=== PATIENT | female | born 1980 | race Caucasian/White ===

== ENCOUNTER → 2018-12-07 | Outpatient (CLI) | payer OTHER ==
[~2018-12-07] MED LIST: COLACE 100100 MG/CAP PO; FE-40325 MG PO; IRON INFUSION; MAXZIDE-25MG TA1 TAB PO; MOTRIN 800800 MG/TAB PO; NORCO 325 MG-51 TAB PO; PERCOCET 325 MG1 TA2 PO; PRENATAL1 TA1
== END ==
LOC: COL.RAD 14:12
DX: K62.5 Hemorrhage of anus and rectum (principal); K63.89 Other specified diseases of intestine; M43.06 Spondylolysis, lumbar region; N83.202 Unspecified ovarian cyst, left side; R19.7 Diarrhea, unspecified; R59.0 Localized enlarged lymph nodes
CPT/HCPCS: Q9967

== ENCOUNTER → 2020-03-16 | Outpatient (CLI) | payer OTHER | LOC: MC.RAD 10:15 | DX: Z12.31 Encounter for screening mammogram for malignant neoplasm of breast (principal) ==

== ENCOUNTER → 2021-03-19 | Outpatient (CLI) | payer OTHER | LOC: MC.RAD 09:18 | DX: Z12.31 Encounter for screening mammogram for malignant neoplasm of breast (principal) ==